=== PATIENT | female | born 1995 | race Caucasian/White ===

== ENCOUNTER 2021-04-10 08:34 | Emergency (ER) | payer OTHER ==
[2021-04-10] MEDS ORDERED: MOTRIN600 MG PO (13:30)
== END 2021-04-10 13:58 | disposition home or self-care (01) ==
LOC: FER 08:34
DX: M54.9 Dorsalgia, unspecified (principal); M54.2 Cervicalgia; R51.9 Headache, unspecified; F17.200 Nicotine dependence, unspecified, uncomplicated; V47.6XXA Car passenger injured in collision with fixed or stationary object in traffic accident, initial encounter
CPT/HCPCS: 72125; 72131